=== PATIENT | female | born 1965 | race Caucasian/White ===

== ENCOUNTER 2016-11-03 16:30 | Inpatient (IN) | payer BC, MEDICARE ==
[~2016-11-03] VITALS: Ht 160 cm; Wt 63.5 kg
[~2016-11-03 16:30] MED LIST: ATIVAN; GABAPENTIN
--- NOTE | 2016-11-03 17:00 | NUR ---
Clean catch-urine specimen was requested from the patient.
[2016-11-03] MEDS ORDERED: NAPR220C15 PO (17:08)
--- NOTE | 2016-11-03 17:57 | NUR ---
Patient is resting comfortably on gurney, lying on her left side, pending MD evaluation, respiration:easy, NAD. Extra warm blankets provided.
--- NOTE | 2016-11-03 18:06 | NUR ---
Patient says she will try to provide the urine@this time.
[2016-11-03] MEDS ORDERED: IV NORMAL SALINE 1000 ML BAG IV ONE (18:30)
[2016-11-03] MEDS ORDERED: ONDANSETRON 4 MG/2 ML VIAL IV ONE (18:30)
[2016-11-03] MEDS ORDERED: ONDANSETRON 4 MG/2 ML VIAL ONE (18:38)
[2016-11-03 18:50] LABS: *BILIRUBIN,URIN NEGATIVE (NEGATIVE); *BLOOD, URINE Trace-intact (NEGATIVE); *CLARITY,URINE CLEAR (CLEAR); *COLOR,URINE YELLOW (YELLOW); *KETONES,URINE 2+ (NEGATIVE); *PROTEIN,URINE TRACE (NEGATIVE); LEUKOCYTE ESTERASE ,URINE NEGATIVE (NEGATIVE); NITRITE, URINE NEGATIVE (NEGATIVE); PH,URINE 6.5 (5.0-8.0); UGLUCOSE NEGATIVE (NEGATIVE)
[2016-11-03 18:52] LABS: BASOPHILS % (AUTO) 0.2 % (0.0-2.0); EOSINOPHILS % (AUTO) 0.1 % (0.0-7.0); HEMOGLOBIN 13.3 g/dL (12.0-16.0); LYMPHOCYTES # (AUTO) 1.4 K/uL (0.8-4.8); LYMPHOCYTES % (AUTO) 10.3 % (20.5-51.5); MEAN CORPUSCULAR HEMOGLOBIN 28.7 uug (27.0-31.0); MEAN CORPUSCULAR HGB CONC 34 g/dL (32.0-37.0); MEAN CORPUSCULAR VOLUME 84.2 fL (81.0-99.0); MONOCYTES # (AUTO) 0.7 K/uL (0.1-1.30); MONOCYTES % (AUTO) 5.2 % (0.0-11.0); NEUTROPHILS # (AUTO) 11.8 K/uL (1.8-8.9); NEUTROPHILS % (AUTO) 84.2 % (38.5-71.5); PLATELET COUNT (AUTO) 263 K/uL (150-450); RED BLOOD CELL COUNT(AUTO) 4.63 MIL/uL (4.20-5.40); RED CELL DISTRIBUTION WIDTH 11.7 % (11.5-14.5); WHITE BLOOD COUNT (AUTO) 13.9 K/uL (4.0-11.2)
[2016-11-03] MEDS ORDERED: PROCHLORPERAZINE EDISYLATE 10 MG/2 ML VIAL IV ONE (19:00)
[2016-11-03] MEDS ORDERED: diphenhydrAMINE 50 MG/1 ML VIAL IV ONE (19:00)
[2016-11-03 19:02] LABS: CALCIUM 9.9 mg/dL (8.5-10.1); CREATININE 0.7 mg/dL (0.6-1.3); POTASSIUM 3.8 mmol/L (3.5-5.1)
[2016-11-03 19:09] LABS: ALBUMIN 3.7 g/dL (3.4-5.0); BILIRUBIN,DIRECT 0.1 mg/dL (0.0-0.2); BILIRUBIN,TOTAL 0.6 mg/dL (0.2-1.0); TOTAL PROTEIN, SERUM 7.5 g/dL (6.4-8.2)
[2016-11-03 19:10] LABS: WBC,URINE 0-3 /HPF (0-3)
[2016-11-03] MEDS ORDERED: PROCHLORPERAZINE EDISYLATE 10 MG/2 ML VIAL ONE (19:28)
[2016-11-03] MEDS ORDERED: diphenhydrAMINE 50 MG/1 ML VIAL ONE (19:28)
[2016-11-03] MEDS ORDERED: OXYCODONE/APAP 5-325 MG TABLET PO ONE (20:00)
[2016-11-03] MEDS ORDERED: OXYCODONE/APAP 5-325 MG TABLET ONE (20:15)
[2016-11-03] MEDS ORDERED: PIPERACILLIN SODIUM/TAZOBACTAM 3.375 G in IV DEXTROSE 5% 50 ML IV ONE (20:30)
--- NOTE | 2016-11-03 20:32 | NUR ---
ALIREZA spoke with surgeon (Dr. Dawson) who stated he would do surgery in the AM. EPIC paged.
[2016-11-03] MEDS ORDERED: PIPERACILLIN/TAZOBACTAM/D5W 50 ML IV ONE (20:37)
--- NOTE | 2016-11-03 21:17 | NUR ---
Pt. admitted to [facility], under care of Dr. Pablo Belongs List completed
[2016-11-03] MEDS ORDERED: ACETAMINOPHEN 650 MG SUPP.RECT RC PRN (21:30)
--- NOTE | 2016-11-03 21:30 | NUR ---
PATIENT ADMITTED FROM ER FOR APPENDICITIS UNDER MACIE'S CARE. PATIENT ALERT AND ORIENTED AND VERBALLY ABLE TO LET NEEDS KNOWN. NO ACUTE DISTRESS AT THIS TIME. DENIES ANY SOB ON RA. AMBULATES WITH A SLOW AND STEADY GAIT. IV SITE ON L AC PATENT. REPORTS PAIN AT A TOLERABLE LEVEL AT THIS TIME. MADE COMFORTABLE WILL BE NPO AT MIDNIGHT. ALL NEEDS ATTENDED TO AT THIS TIME. CALL LIGHT WITHIN REACH, WILL CONTINUE TO MONITOR.
[2016-11-03 21:34] VITALS: BP 114/48
[2016-11-03] MEDS: PIPERACILLIN/TAZOBACTAM/D5W 3.375 G in PREMIXED 1 EACH IV SCH (22:00)
--- NOTE | 2016-11-03 22:00 | NUR ---
2200 ZOZYN NOT GIVEN, GIVEN AT 2108 IN THE ER. DOSE TOO CLOSE. WILL CONTINUE TO MONITOR.
[2016-11-03] MEDS ORDERED: PIPERACILLIN SODIUM/TAZO 3.375 GM VIAL ONE (22:33)
[2016-11-03] MEDS: POTASSIUM CHLORIDE 20 MEQ in IV D5/ 0.9% NACL 1,000 ML IV PRN (22:50)
[2016-11-04] MEDS: HYDROMORPHONE 1 MG/1 ML DISP.SYRIN IV PRN ×4 (01:56→21:12)
[2016-11-04] MEDS ORDERED: HYDROMORPHONE 1 MG/1 ML DISP.SYRIN ONE (01:57)
--- NOTE | 2016-11-04 02:00 | NUR ---
Patient c/o severe headache and abdominal pain 03/25, requesting pain med. Dilaudid 0.5 mg prn given as prescribed. Will reassess, will continue to monitor.
[2016-11-04 05:00] VITALS: BP 110/50
[2016-11-04] MEDS: PIPERACILLIN/TAZOBACTAM/D5W 3.375 G in PREMIXED 1 EACH IV SCH ×3 (05:28→21:13)
[2016-11-04 06:42] LABS: BASOPHILS % (AUTO) 0.2 % (0.0-2.0); EOSINOPHILS # (AUTO) 0.1 K/uL (0.0-0.7); EOSINOPHILS % (AUTO) 0.7 % (0.0-7.0); LYMPHOCYTES # (AUTO) 2.2 K/uL (0.8-4.8); LYMPHOCYTES % (AUTO) 23.1 % (20.5-51.5); MEAN CORPUSCULAR HGB CONC 34 g/dL (32.0-37.0); MEAN CORPUSCULAR VOLUME 84.2 fL (81.0-99.0); MONOCYTES # (AUTO) 0.9 K/uL (0.1-1.30); MONOCYTES % (AUTO) 9.5 % (0.0-11.0); NEUTROPHILS # (AUTO) 6.2 K/uL (1.8-8.9); NEUTROPHILS % (AUTO) 66.5 % (38.5-71.5); PLATELET COUNT (AUTO) 203 K/uL (150-450); RED CELL DISTRIBUTION WIDTH 11.8 % (11.5-14.5); WHITE BLOOD COUNT (AUTO) 9.4 K/uL (4.0-11.2)
--- NOTE | 2016-11-04 06:48 | NUR ---
PATIENT SLEPT WELL THROUGH OUT THE NIGHT. CURRENTLY NPO UNTIL FURTHER NOTICE, PENDING SURGERY IN AM. C/O OF HEADACHE AND ABD PAIN MANAGED WITH PRN MEDICATION ADMINISTERED X1 PER ORDERS. ALL NEEDS MET. CALL LIGHT WITHIN REACH, SAFETY AND COMFORT MEASURES PROVIDED. WILL ENDORSE PLAN OF CARE TO INCOMING NURSE.
[2016-11-04 06:58] LABS: ALBUMIN 2.9 g/dL (3.4-5.0); BILIRUBIN,TOTAL 0.5 mg/dL (0.2-1.0); CALCIUM 8.7 mg/dL (8.5-10.1); CREATININE 0.6 mg/dL (0.6-1.3); MAGNESIUM 1.9 mg/dL (1.8-2.4)
[2016-11-04 07:51] LABS: HEMATOCRIT 31.9 % (37.0-47.0); RED BLOOD CELL COUNT(AUTO) 3.78 MIL/uL (4.20-5.40)
--- NOTE | 2016-11-04 08:00 | NUR ---
Received ALOX4 sitting up in bed with IVF infusing well site without redness or swelling noted at this time Amb to BR with good steady gait. Sent pt to shower prior to surgery. Surgery due at 1600 today.
[2016-11-04] MEDS: PANTOPRAZOLE SODIUM 40 MG VIAL IV SCH (11:00)
[2016-11-04 11:09] VITALS: BP 122/63
[2016-11-04 11:14] LABS: *URINE HCG, QUAL NEGATIVE (NEGATIVE)
[2016-11-04] MEDS ORDERED: VECURONIUM BROMIDE 10 MG VIAL IV ONE (12:49)
[2016-11-04] MEDS ORDERED: SEVOFLURANE 250 ML BOTTLE IH ONE (12:49)
[2016-11-04] MEDS ORDERED: PROPOFOL 200 MG/20 ML BOTTLE IV ONE (12:49)
[2016-11-04] MEDS ORDERED: GLYCOPYRROLATE 0.2 MG/ML VIAL MC ONE (14:45)
[2016-11-04] MEDS ORDERED: NEOSTIGMINE METHYLSULFATE 10 MG/10 ML VIAL IV ONE (14:45)
[2016-11-04] MEDS ORDERED: CEFAZOLIN 1 G VIAL MC ONE (14:46)
[2016-11-04] MEDS ORDERED: DEXAMETHASONE SOD PHOSPHATE 4 MG INJ IV ONE (14:46)
[2016-11-04] MEDS ORDERED: LIDOCAINE HCL 1% 20 ML VIAL MC ONE (14:47)
[2016-11-04] MEDS ORDERED: IV NORMAL SALINE 1000 ML BAG IV ONE (14:47)
[2016-11-04] MEDS ORDERED: ONDANSETRON 4 MG/2 ML VIAL IV ONE (14:47)
[2016-11-04] MEDS ORDERED: BUPIVACAINE/EPI PF 0.25% 30 ML VIAL ONE (15:00)
[2016-11-04] MEDS ORDERED: BUPIVACAINE 0.25% 30 ML VIAL ONE (15:00)
[2016-11-04 15:03] VITALS: BP 100/53
--- NOTE | 2016-11-04 15:15 | NUR ---
Off the unit in stable condition to OR.
[2016-11-04] MEDS ORDERED: MIDAZOLAM HCL 2 MG/2 ML VIAL ONE (15:36)
[2016-11-04] MEDS ORDERED: FENTANYL CITRATE 100 MCG/2 ML AMPUL ONE (17:08)
[2016-11-04] MEDS ORDERED: MORPHINE SULFATE 2 MG/1 ML DISP.SYRIN ONE ×3 (17:14→17:41)
[2016-11-04 18:11] VITALS: BP 106/72
--- NOTE | 2016-11-04 18:23 | NUR ---
Returned to unit from OR in stable condition, pt has three midline band-aids on abd and c/o abd pain at this time and medicated with Dilaudid 0.5mg IVP slow, no adverse reaction noted at this time.
--- NOTE | 2016-11-04 18:30 | NUR ---
Pt resting without distress at this time with G-Tube feeding infusing well, no residuals noted during this shift.
[2016-11-04 18:33] VITALS: BP 113/80
--- NOTE | 2016-11-04 19:58 | NUR ---
Received pt awake, alert and oriented, no acute distress noted. C/o of pain on incisional sites prn med given recently by am nurse, instructed to splint when coughing to assist with pain. Incision sites secured with bandaids, intact, no active bleeding noted, no s/s of infection observed. Assisted to bathroom, tolerated well, with small bm. Incentive spirometer provided, educated on use, benefits, voiced understanding and returned demonstration. Made comfortable. All needs attended at this time. Call light in reach. Will continue to monitor.
[2016-11-04 20:32] VITALS: BP 113/63
--- NOTE | 2016-11-04 22:40 | NUR ---
PATIENT AMBULATED WITH ASSISTANCE AROUND THE UNIT X 1 LAP. GAIT SLOW AND STEADY, TOLERATED WELL. ASSISTED BACK TO BED, WILL CONTINUE TO MONITOR. HAS CALL LIGHT WITHIN REACH.
[2016-11-05] MEDS: HYDROMORPHONE 1 MG/1 ML DISP.SYRIN IV PRN ×5 (00:26→14:15)
[2016-11-05] MEDS: POTASSIUM CHLORIDE 20 MEQ in IV D5/ 0.9% NACL 1,000 ML IV PRN ×2 (04:44→16:04)
[2016-11-05] MEDS: PIPERACILLIN/TAZOBACTAM/D5W 3.375 G in PREMIXED 1 EACH IV SCH ×3 (05:00→21:00)
[2016-11-05 05:14] VITALS: BP 100/56
--- NOTE | 2016-11-05 05:57 | NUR ---
PATIENT SLEPT INTERMITTENTLY, HAD SOME C/O PAIN ON ABD INCISION SITE AND HEADACHE WHICH WERE RELIEVED WITH PRESCRIBED PAIN MEDICATION. AMBULATES TO RESTROOM WITH ASSISTANCE. INCENTIVE SPIROMETER AT BEDSIDE, REINFORCEMENT EDUCATION PROVIDE WITH RETURN DEMONSTRATION. HAS CALL LIGHT WITHIN REACH, SAFETY MAINTAINED. WILL CONTINUE TO MONITOR.
[2016-11-05 06:40] LABS: BASOPHILS % (AUTO) 0.1 % (0.0-2.0); EOSINOPHILS % (AUTO) 0.1 % (0.0-7.0); HEMATOCRIT 31.6 % (37.0-47.0); HEMOGLOBIN 10.7 g/dL (12.0-16.0); LYMPHOCYTES % (AUTO) 12.4 % (20.5-51.5); MEAN CORPUSCULAR HEMOGLOBIN 29.1 uug (27.0-31.0); MEAN CORPUSCULAR HGB CONC 34 g/dL (32.0-37.0); MONOCYTES # (AUTO) 0.5 K/uL (0.1-1.30); MONOCYTES % (AUTO) 5.7 % (0.0-11.0); NEUTROPHILS # (AUTO) 6.9 K/uL (1.8-8.9); NEUTROPHILS % (AUTO) 81.7 % (38.5-71.5); PLATELET COUNT (AUTO) 201 K/uL (150-450); RED BLOOD CELL COUNT(AUTO) 3.67 MIL/uL (4.20-5.40); RED CELL DISTRIBUTION WIDTH 12.2 % (11.5-14.5); WHITE BLOOD COUNT (AUTO) 8.4 K/uL (4.0-11.2)
[2016-11-05 06:53] LABS: CALCIUM 9.1 mg/dL (8.5-10.1); CREATININE 0.6 mg/dL (0.6-1.3); POTASSIUM 3.9 mmol/L (3.5-5.1)
[2016-11-05] MEDS: PANTOPRAZOLE SODIUM 40 MG VIAL IV SCH (08:11)
[2016-11-05] MEDS: ONDANSETRON 4 MG/2 ML VIAL IV PRN ×2 (08:17→12:26)
[2016-11-05 11:26] VITALS: BP 106/56
[2016-11-05] MEDS: DULOXETINE 60 MG CAPSULE.DR PO SCH (11:48)
[2016-11-05] MEDS: GABAPENTIN 300 MG CAPSULE PO SCH ×3 (12:01→20:54)
[2016-11-05] MEDS ORDERED: PROCHLORPERAZINE EDISYLATE 10 MG/2 ML VIAL IV PRN (15:00)
[2016-11-05 16:05] VITALS: BP 111/55
--- NOTE | 2016-11-05 21:02 | NUR ---
PATIENT AWAKE AND ALERT, DENIES NAUSEA/VOMITING AT THIS TIME. NO C/O PAIN AT THIS TIME. PT STATES ABLE TO PASS GAS IN THE AM SHIFT. ALL NEEDS ATTENDED AT THIS TIME. WILL CONTINUE MONITORING.
[2016-11-05 22:01] VITALS: BP 115/63
[2016-11-06] MEDS: HYDROMORPHONE 1 MG/1 ML DISP.SYRIN IV PRN ×2 (02:41→08:21)
[2016-11-06] MEDS: POTASSIUM CHLORIDE 20 MEQ in IV D5/ 0.9% NACL 1,000 ML IV PRN (02:46)
[2016-11-06] MEDS: PIPERACILLIN/TAZOBACTAM/D5W 3.375 G in PREMIXED 1 EACH IV SCH (05:12)
[2016-11-06 05:39] VITALS: BP 102/54
--- NOTE | 2016-11-06 06:38 | NUR ---
PATIENT ALERT AND ORIENTED, DENIED ANY EPISODES OF NAUSEA THROUGHOUT THE NIGHT. PAIN MEDICATION ADMINISTERED ONCE WITH RELIEF. IV SITE CHANGED DUE TO LEAKING. NEW SITE ON R WRIST, PATENT AND FLUSHING WELL. BRP WITH ASSISTANCE. SAFETY AND COMFORT PROVIDED, CALL LIGHT WITHIN REACH.
[2016-11-06 07:10] LABS: ALBUMIN 2.7 g/dL (3.4-5.0); BILIRUBIN,TOTAL 0.3 mg/dL (0.2-1.0); CALCIUM 8.8 mg/dL (8.5-10.1); CREATININE 0.6 mg/dL (0.6-1.3); MAGNESIUM 1.7 mg/dL (1.8-2.4); PHOSPHOROUS 3.5 mg/dL (2.5-4.9); POTASSIUM 3.6 mmol/L (3.5-5.1); TOTAL PROTEIN, SERUM 5.7 g/dL (6.4-8.2)
--- NOTE | 2016-11-06 07:30 | NUR ---
PT RECEIVED IN BED SLEEPING .NO C/O PAIN NOTED.V/S ARE STABLE.PT IS AXOX4.BREAKFAST SERVED.
[2016-11-06 07:47] LABS: HEMATOCRIT 30.6 % (37.0-47.0); MEAN CORPUSCULAR HEMOGLOBIN 28.7 uug (27.0-31.0); MEAN CORPUSCULAR HGB CONC 33 g/dL (32.0-37.0); MEAN CORPUSCULAR VOLUME 87.7 fL (81.0-99.0); PLATELET COUNT (AUTO) 180 K/uL (150-450); RED BLOOD CELL COUNT(AUTO) 3.49 MIL/uL (4.20-5.40); WHITE BLOOD COUNT (AUTO) 5.1 K/uL (4.0-11.2)
[2016-11-06] MEDS: GABAPENTIN 300 MG CAPSULE PO SCH ×2 (08:02→12:17)
[2016-11-06] MEDS: DULOXETINE 60 MG CAPSULE.DR PO SCH (08:02)
[2016-11-06] MEDS: PANTOPRAZOLE SODIUM 40 MG VIAL IV SCH (08:05)
--- NOTE | 2016-11-06 10:00 | NUR ---
PT WALKING IN THE HALLWAY ,TOLERATING WELL NO C/O DIZZINESS AND PAIN NOTED.
[2016-11-06 10:59] LABS: BASOPHILS % (AUTO) 0.4 % (0.0-2.0); EOSINOPHILS % (AUTO) 0.8 % (0.0-7.0); LYMPHOCYTES # (AUTO) 2.1 K/uL (0.8-4.8); LYMPHOCYTES % (AUTO) 41.8 % (20.5-51.5); MONOCYTES # (AUTO) 0.4 K/uL (0.1-1.30); MONOCYTES % (AUTO) 7.9 % (0.0-11.0); NEUTROPHILS # (AUTO) 2.4 K/uL (1.8-8.9); NEUTROPHILS % (AUTO) 49.1 % (38.5-71.5)
[2016-11-06] MEDS ORDERED: PROC-11 PO (11:42)
[2016-11-06] MEDS ORDERED: Duloxetine Hcl PO (11:42)
[2016-11-06] MEDS ORDERED: CEPH-570 PO (11:42)
[2016-11-06 11:45] VITALS: BP 117/73
[2016-11-06] MEDS ORDERED: MAGNESIUM OXIDE 400 MG TABLET PO ONE (12:15)
[2016-11-06] MEDS ORDERED: MAGNESIUM SULFATE/D5W 100 ML IV SCH (12:15)
--- NOTE | 2016-11-06 13:05 | NUR ---
D/C ORDERS RECEIVED NOTED AND CARRIED OUT.D/C [place] PER MD ORDERS.DISCHARGE INSTRUCTIONS AND EDUCATIONS GIVEN TO THE PT.PT VERBALIZED UNDERSTANDING ALL THE INSTRUCTIONS.PT LEFT THE FACILITY VIA PRIVATE CAR IN STABLE CONDITION.
== END 2016-11-06 12:50 | disposition home or self-care (01) | DRG 338 ==
LOC: ER 16:38 → MED 20:57
PROVIDERS: ADMIT Internal Medicine; ATTEND Internal Medicine
PROC: 0DTJ4ZZ Resection of Appendix, Percutaneous Endoscopic Approach (ICD-10-PCS; principal; 2016-11-04 16:00)
DX: K35.3 Acute appendicitis with localized peritonitis (principal); K85.90 Acute pancreatitis without necrosis or infection, unspecified; M79.7 Fibromyalgia; G89.29 Other chronic pain; M54.10 Radiculopathy, site unspecified; Z90.49 Acquired absence of other specified parts of digestive tract; Z88.5 Allergy status to narcotic agent; Z88.8 Allergy status to other drugs, medicaments and biological substances
CPT/HCPCS: 36415; 71010; 83690; 83735; 84100; 84703; 85025; 93005; A4663; C9113; J0690; J0780; J1100; J1170; J1200; J2250; J2270; J2405; J2543; J2710; J3010; J3480; J3490; J7030; J7042; J7060

== ENCOUNTER 2017-02-17 00:15 | Emergency (ER) | payer MEDICARE ==
[~2017-02-17] VITALS: Ht 160 cm; Wt 63.5 kg
[~2017-02-17 00:15] MED LIST changes: +CEPH-570 PO; +Duloxetine Hcl PO; +NAPR220C15 PO; +PROC-11 PO
--- NOTE | 2017-02-17 00:22 | NUR ---
PATIENT WALKED INTO ER C/O CP RADIATING TO LEFT ARM AND LEFT UPPER BACK X2 DAYS. CAME IN FOR WORSENING PAIN, PT IS ALERT, ORIENTED X 3, NO RESP DISTRESS NOTED OR REPORTED UPON ASSESSMENT... MD AT BEDSIDE...
[2017-02-17] MEDS ORDERED: KETOROLAC TROMETHAMINE 15 MG INJ IV ONE (00:45)
[2017-02-17] MEDS ORDERED: ONDANSETRON 4 MG/2 ML VIAL IV ONE (00:45)
--- NOTE | 2017-02-17 01:05 | NUR ---
TRIAL MANAGER AT BEDSIDE FOR CHEST XRAY....
[2017-02-17] MEDS ORDERED: KETOROLAC TROMETHAMINE 15 MG INJ ONE (01:06)
[2017-02-17] MEDS ORDERED: ONDANSETRON 4 MG/2 ML VIAL ONE (01:06)
[2017-02-17 01:07] LABS: BASOPHILS % (AUTO) 0.8 % (0.0-2.0); EOSINOPHILS # (AUTO) 0.3 K/uL (0.0-0.7); EOSINOPHILS % (AUTO) 4.7 % (0.0-7.0); HEMATOCRIT 41.1 % (37-47); HEMOGLOBIN 13.6 G/DL (12.0-16.0); LYMPHOCYTES # (AUTO) 2.2 K/UL (0.8-4.8); LYMPHOCYTES % (AUTO) 38.9 % (20.5-51.5); MEAN CORPUSCULAR HEMOGLOBIN 28.3 UUG (27.0-31.0); MEAN CORPUSCULAR HGB CONC 33 g/dL (32.0-37.0); MEAN CORPUSCULAR VOLUME 85.7 FL (81.0-99.0); MONOCYTES # (AUTO) 0.5 K/UL (0.1-1.30); MONOCYTES % (AUTO) 9.3 % (0.0-11.0); NEUTROPHILS # (AUTO) 2.8 K/UL (1.8-8.9); NEUTROPHILS % (AUTO) 46.3 % (38.5-71.5); PLATELET COUNT (AUTO) 207 K/UL (150-450); WHITE BLOOD COUNT (AUTO) 5.8 K/UL (4.0-11.2)
[2017-02-17 01:14] LABS: CREATININE 0.7 mg/dL (0.6-1.3); POTASSIUM 3.7 mmol/L (3.5-5.1)
[2017-02-17 01:26] LABS: BILIRUBIN,DIRECT 0.1 mg/dL (0.0-0.2); BILIRUBIN,TOTAL 0.2 mg/dL (0.2-1.0); TOTAL PROTEIN, SERUM 7.3 g/dL (6.4-8.2)
[2017-02-17] MEDS ORDERED: MORPHINE SULFATE 4 MG/1 ML DISP.SYRIN IV ONE (01:30)
[2017-02-17] MEDS ORDERED: MORPHINE SULFATE 4 MG/1 ML DISP.SYRIN ONE (01:52)
[2017-02-17] MEDS ORDERED: IV NORMAL SALINE 250 ML IV ONE (01:52)
[2017-02-17] MEDS ORDERED: IOHEXOL 350 100 ML INFUS..BTL ONE (01:52)
--- NOTE | 2017-02-17 02:00 | NUR ---
SUPERVISING FIRE MARSHAL AT BEDSIDE, TAKING PT VIA GURNEY FOR CTA
--- NOTE | 2017-02-17 02:26 | NUR ---
PT RETURNED FROM CTA... PT ALERT, ORIENTEDX3, NO RESP DISTRESS NOTED OR REPORTED UPON ASSESSMENT...
[2017-02-17] MEDS ORDERED: IV NORMAL SALINE 1000 ML BAG IV ONE (02:30)
--- NOTE | 2017-02-17 03:15 | NUR ---
Patient discharged to home in stable conditon. Written and verbal after care instructions given. Patient verbalizes understanding of instructions. pt walked out of ER unassisted with belongings at side, pt states son will have uber pick her up and take her home due to medication....
[2017-02-17 03:17] VITALS: BP 137/83
== END 2017-02-17 03:18 | disposition home or self-care (01) ==
LOC: ER 00:17
DX: R07.9 Chest pain, unspecified (principal); M79.7 Fibromyalgia; R06.00 Dyspnea, unspecified; Z88.5 Allergy status to narcotic agent; Z88.8 Allergy status to other drugs, medicaments and biological substances; Z90.49 Acquired absence of other specified parts of digestive tract
CPT/HCPCS: 36415; 71010; 71275; 80048; 80076; 83880; 84484; 84703; 85025; 85730; 93005 ×2; 96361; 96374; 96375; 99285; A4663; J1885; J2270; J2405; J7030; J7050; Q9967; 70030-TC

== ENCOUNTER 2018-05-31 15:45 | Emergency (ER) | payer MEDICARE, BC ==
[~2018-05-31] VITALS: Ht 160 cm; Wt 59.0 kg
--- NOTE | 2018-05-31 16:00 | NUR ---
Dr Gruber at the bedside for MSE.
--- NOTE | 2018-05-31 16:50 | NUR ---
Patient discharged to home in stable conditon. Written and verbal after care instructions given. Patient verbalizes understanding of instructions. pt walked out of ER using own cane.
[2018-05-31 16:51] VITALS: BP 122/79
== END 2018-05-31 16:52 | disposition home or self-care (01) ==
LOC: ER 15:45
DX: M54.2 Cervicalgia (principal); M79.601 Pain in right arm; M79.604 Pain in right leg; Z88.5 Allergy status to narcotic agent; Z88.8 Allergy status to other drugs, medicaments and biological substances; Z90.49 Acquired absence of other specified parts of digestive tract
CPT/HCPCS: A4663

== ENCOUNTER 2021-12-21 07:21 | Emergency (ER) | payer BC, MEDICARE, OTHER ==
[~2021-12-21] VITALS: Ht 160 cm; Wt 65.8 kg
[2021-12-21] MEDS ORDERED: BONIVA (07:50)
[2021-12-21] MEDS ORDERED: CYMBALTA (07:50)
[2021-12-21] MEDS ORDERED: PERCOCET (07:50)
[2021-12-21] MEDS ORDERED: TYLENOL#4 (07:50)
[2021-12-21] MEDS ORDERED: HYDROCODONE/APAP 5-325MG TABLET PO ONE (08:45)
[2021-12-21] MEDS ORDERED: HYDROCODONE/APAP 5-325MG TABLET ONE (08:47)
[2021-12-21] MEDS ORDERED: HYDR-3972 PO (10:04)
--- NOTE | 2021-12-21 10:14 | NUR ---
Patient discharged to home in stable condition. Written and verbal after care instructions given. Patient verbalizes understanding of instructions. Stressed follow up or return to ER for worsening s/s.pt accompanied with friend
== END 2021-12-21 10:15 | disposition home or self-care (01) ==
LOC: ER 07:23
DX: S82.64XA Nondisplaced fracture of lateral malleolus of right fibula, initial encounter for closed fracture (principal); S16.1XXA Strain of muscle, fascia and tendon at neck level, initial encounter; M23.92 Unspecified internal derangement of left knee; W18.09XA Striking against other object with subsequent fall, initial encounter; Y93.01 Activity, walking, marching and hiking; Y92.481 Parking lot as the place of occurrence of the external cause; M47.897 Other spondylosis, lumbosacral region; M06.9 Rheumatoid arthritis, unspecified; M79.7 Fibromyalgia; Z90.49 Acquired absence of other specified parts of digestive tract; Z88.6 Allergy status to analgesic agent; Z88.8 Allergy status to other drugs, medicaments and biological substances; G89.29 Other chronic pain
CPT/HCPCS: 71250; 72125; 72131; 73610; A4663

== ENCOUNTER 2022-12-15 20:59 | Emergency (ER) | payer OTHER ==
[~2022-12-15] VITALS: Ht 160 cm; Wt 68.0 kg
[~2022-12-15 20:59] MED LIST changes: +BONIVA; +CYMBALTA; +HYDR-3972 PO; +PERCOCET; +TYLENOL#4
[2022-12-15] MEDS ORDERED: OMEP20TA5 PO (21:28)
[2022-12-15] MEDS ORDERED: OXYC-128 PO (21:28)
[2022-12-15] MEDS ORDERED: CELE100C PO (21:28)
[2022-12-15] MEDS ORDERED: estrogen patch TD (21:28)
[2022-12-15] MEDS ORDERED: ATOR10TA PO (21:28)
[2022-12-15] MEDS ORDERED: PROG100C8 PO (21:28)
[2022-12-15] MEDS ORDERED: ACET1TAB25 PO (21:28)
[2022-12-15] MEDS ORDERED: CYCL5TAB PO (21:28)
[2022-12-15] MEDS ORDERED: GABA600T12 PO (21:28)
[2022-12-15] MEDS ORDERED: DULO60CA45 PO (21:28)
--- NOTE | 2022-12-15 22:20 | NUR ---
PT AMB TO RM 2A WITH C/O ABD PAIN AND VAG BLEEDING X 2 DAYS. PT PLACED ON MONITOR.
--- NOTE | 2022-12-15 23:00 | NUR ---
LAB AT BEDSIDE DRAWING BLOOD.
[2022-12-15 23:17] LABS: HEMATOCRIT 39.9 % (31.2-41.9); MEAN CORPUSCULAR HEMOGLOBIN 28.6 uug (24.7-32.8); MEAN CORPUSCULAR VOLUME 88.9 fL (75.5-95.3); PLATELET COUNT (AUTO) 222 K/uL (179-408)
--- NOTE | 2022-12-15 23:25 | NUR ---
PT UP OOB AMB TO BR WITH STEADY GAIT. URINE COLLECTED/SENT.
[2022-12-15 23:28] LABS: CREATININE 0.6 mg/dL (0.6-1.3); POTASSIUM 4.2 mmol/L (3.5-5.1)
[2022-12-15 23:34] LABS: BILIRUBIN,DIRECT 0.1 mg/dL (0.0-0.2); BILIRUBIN,TOTAL 0.2 mg/dL (0.2-1.0); TOTAL PROTEIN, SERUM 6.9 g/dL (6.4-8.2)
[2022-12-16 00:14] LABS: *BILIRUBIN,URIN NEGATIVE (NEGATIVE); *BLOOD, URINE 3+ (NEGATIVE); *CLARITY,URINE CLEAR (CLEAR); *COLOR,URINE YELLOW (YELLOW); *KETONES,URINE NEGATIVE (NEGATIVE); *UROBILINOGEN,URINE 0.2 E.U./dl (NORMAL); LEUKOCYTE ESTERASE ,URINE NEGATIVE (NEGATIVE); NITRITE, URINE NEGATIVE (NEGATIVE); UGLUCOSE NEGATIVE (NEGATIVE)
[2022-12-16 00:51] LABS: *URINE HCG, QUAL NEGATIVE (NEGATIVE); BACTERIA,URINE NONE SEEN /HPF (NONE SEEN); SQUAMOUS EPITHELIAL CELL,UR FEW /HPF (NONE SEEN); WBC,URINE 0-3 /HPF (0-3)
[2022-12-16] MEDS ORDERED: IOHEXOL 300MG/ML 100 ML INFUS..BTL ONE (01:07)
[2022-12-16] MEDS ORDERED: SWABABLE VALVE TRANSFER SET EA MC ONE (01:08)
[2022-12-16] MEDS ORDERED: IV NORMAL SALINE 250 ML IV ONE (01:08)
--- NOTE | 2022-12-16 01:30 | NUR ---
PT TAKEN TO CT VIA W/C.
--- NOTE | 2022-12-16 02:42 | NUR ---
PT C/O OF INCREASING ABD PAIN /10.
[2022-12-16] MEDS ORDERED: MORPHINE SULFATE 4 MG/1 ML DISP.SYRIN ONE (03:00)
[2022-12-16] MEDS ORDERED: MORPHINE SULFATE 4 MG/1 ML DISP.SYRIN IV ONE (03:00)
--- NOTE | 2022-12-16 03:00 | NUR ---
PT UP OOB AMB TO BR WITH STEADY GAIT. PT VOIDED.
--- NOTE | 2022-12-16 03:45 | NUR ---
Patient discharged to home in stable condition. PT A,A AND O X 4 WITH VSS AND ABD PAIN 2/10 WITH NO N/V. Written and verbal after care instructions given. Patient verbalizes understanding of instructions. Stressed follow up or return to ER for worsening s/s. PT'S IV D/C'D, SITE C/D/I. PT AMB OUT WITH STEADY GAIT, WITH NIECE.
[2022-12-16 05:00] VITALS: BP 139/91
== END 2022-12-16 03:45 | disposition home or self-care (01) ==
LOC: ER 21:02
DX: R10.9 Unspecified abdominal pain (principal); N93.8 Other specified abnormal uterine and vaginal bleeding; R10.2 Pelvic and perineal pain; Z90.49 Acquired absence of other specified parts of digestive tract; Z88.5 Allergy status to narcotic agent; Z88.8 Allergy status to other drugs, medicaments and biological substances; Z79.899 Other long term (current) drug therapy
CPT/HCPCS: 99285; 76856; 80076; 80048; 83690; 85025; 84702; 36415; 74177; 96374; 81001; 84703; Q9967; J2270; A4663